=== PATIENT | female | born 1970 | race Caucasian/White ===

== ENCOUNTER 2023-02-19 21:51 | Emergency (ER) | payer OTHER ==
[~2023-02-19] VITALS: Ht 157.5 cm; Wt 60.3 kg
[2023-02-19 22:57] VITALS: BP 113/79; PULSE 71; RESP 20; TEMP 98.1; O2SAT 99
[2023-02-19] MEDS ORDERED: predniSONE 20 MG TAB PO ONE (23:20)
[2023-02-19] MEDS ORDERED: ACYC-278 PO (23:27)
[2023-02-19] MEDS ORDERED: [UNRECOGNIZED DRUG - CODE] OP (23:27)
[2023-02-19] MEDS ORDERED: PRED20TA5 PO (23:27)
== END 2023-02-19 23:43 | disposition home or self-care (01) ==
LOC: MED 22:10
DX: G51.0 Bell's palsy (principal); E11.9 Type 2 diabetes mellitus without complications; Z98.890 Other specified postprocedural states; Z79.899 Other long term (current) drug therapy
CPT/HCPCS: 99283; J7512

== ENCOUNTER 2023-09-25 13:16 | Emergency (ER) | payer MEDICAID, OTHER ==
[~2023-09-25] VITALS: Ht 157.5 cm; Wt 91.6 kg
[~2023-09-25 13:16] MED LIST: ACYC-278 PO; PRED20TA5 PO; [UNRECOGNIZED DRUG - CODE] OP
[2023-09-25 13:33] VITALS: BP 114/75; PULSE 89; RESP 18; TEMP 98.3; O2SAT 97
[2023-09-25] MEDS ORDERED: IBUP-2213 PO (15:12)
[2023-09-25] MEDS ORDERED: FLUT16SP10 NS (15:12)
[2023-09-25] MEDS ORDERED: PSEU-250 PO (15:12)
[2023-09-25 15:40] LABS: FLU A ANTIGEN negative (NEGATIVE); FLU B ANTIGEN NEGATIVE (NEGATIVE)
[2023-09-25] MEDS: KETOROLAC 30 MG/ML VIAL IM ONE (15:48)
[2023-09-25 15:49] VITALS: BP 134/80; PULSE 78; RESP 20; TEMP 98.3; O2SAT 97
== END 2023-09-25 15:49 | disposition home or self-care (01) ==
LOC: MED 13:16
DX: J06.9 Acute upper respiratory infection, unspecified (principal); B97.89 Other viral agents as the cause of diseases classified elsewhere; E11.9 Type 2 diabetes mellitus without complications; Z20.822 Contact with and (suspected) exposure to COVID-19; Z79.1 Long term (current) use of non-steroidal anti-inflammatories (NSAID); Z79.899 Other long term (current) drug therapy
CPT/HCPCS: 87426; 87804; 96372; 99283; J1885